=== PATIENT | male | born 2000 | race Caucasian/White ===

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

== ENCOUNTER → 2021-03-07 08:59 | Outpatient (BNVA) | payer OTHER, SELFPAY | PROVIDERS: PCP Family Medicine Adult Medicine; Visit Provider Specialist | DX: G40.309 Generalized idiopathic epilepsy and epileptic syndromes, not intractable, without status epilepticus (principal); F17.210 Nicotine dependence, cigarettes, uncomplicated | CPT/HCPCS: 99213; 99214 ==

== ENCOUNTER 2021-03-07 10:10 | Outpatient (CLI) | payer OTHER, SELFPAY ==
[2021-03-07 10:41] LABS: Basophils % 0.3 %; Eosinophils # 0.1 10^3/uL (0.0-0.8); Eosinophils % 1.9 %; Hematocrit 44.1 % (42.0-52.0); Hemoglobin 14.2 g/dL (11.7-16.6); Lymphocytes # 1.8 10^3/uL (1.5-6.5); Mean Corpuscular HGB Conc 32.2 g/dL (30.0-36.0); Mean Corpuscular Hemoglobin 30.2 pg (28.0-34.0); Mean Corpuscular Volume 93.8 fl (80-94); Mean Platelet Volume 9.9 fL (7.4-10.4); Monocytes # 0.9 10^3/uL (0.2-0.9); Monocytes % 13.9 %; Neutrophils # 3.59 10^3/uL (1.8-8.0); Neutrophils % 55.6 %; Nucleated Red Blood Cells % 0 %; Platelet Count 166 10^3/cmm (130-400); Red Cell Distribution Width 12.6 % (12.1-15.1); White Blood Count 6.5 10^3/uL (4.5-13.0)
[2021-03-07 11:06] LABS: Alanine Aminotransferase 29 U/L (0-41)
[2021-03-07 11:25] LABS: Valproic Acid Level 75.9 ug/mL (50-100)
[2021-03-11 14:49] LABS: Levetiracetam Keppra 7.9 mcg/mL
== END 2021-03-07 10:11 | disposition home or self-care (01) ==
LOC: LAB 10:21
PROVIDERS: PCP Family Medicine Adult Medicine; Visit Provider Specialist
DX: G40.309 Generalized idiopathic epilepsy and epileptic syndromes, not intractable, without status epilepticus (principal)
CPT/HCPCS: 36415; 80164; 80177; 84460; 85025

== ENCOUNTER 2021-03-25 21:25 | Emergency (ER) | payer OTHER, SELFPAY ==
[2021-03-25 21:28] VITALS: BMI 25.1
[2021-03-25 21:33] VITALS: BP 135/82; PULSE 68; PULSE 72; RESP 19; RESP 21; TEMP 36.4; O2SAT 96; O2SAT 97
--- NOTE | 2021-03-25 21:38 | ECG_ITS ---
[facility] Test Date: 2021-03-25 Pat Name: Jong Wright Department: Room: Gender: Male Embedder: : 2000 Requested By: Dk Valle Order Number: [id number] Reading MD: YANELIS PAYNE Measurements Intervals [place] Rate: 71 P: 62 HI: 151 QRS: 61 QRSD: 90 T: 55 QT: 335 QTc: 366 Interpretive Statements SINUS RHYTHM EARLY REPOLARIZATION [ST ELEVATION WITH NORMALLY INFLECTED T-WAVE] No previous ECG available for comparison Electronically Signed On 03-26-2021 15:03:53 CDT by YANELIS PAYNE [email or web address]
--- NOTE | 2021-03-25 21:39 | XRR_ITS ---
PROCEDURE INFORMATION: Exam: XR Left Shoulder Exam date and time: 03/25/2021 9:39 PM Age: 20 years old Clinical indication: Injury or trauma; Fall; Blunt trauma (contusions or hematomas); Shoulder; Left; Additional info: Rule out dislocation TECHNIQUE: Imaging protocol: XR Left shoulder. Views: 2 or more views. Total images: 3 COMPARISON: CR XR shoulder LT min 2V* [id number] 06/07/2020 7:12 PM FINDINGS: Bones/joints: Normal. Soft tissues: Normal. XR/XR shoulder LT min 2V* [id number] IMPRESSION: No acute findings.
--- NOTE | 2021-03-25 21:55 | W.ED.GENADLT ---
Documented by User: Dk Valle MD 03/26/21 19:05 HPI - General Adult General: Chief complaint: Seizure Stated complaint: SEIZURE/ POSSIBLE DISLOCATED SHOULDER Time Seen by Provider: 03/25/21 21:36 History of Present Illness: HPI narrative: HPI: [20]yo patient w/ hx of epilespy on depakote, and keppra BIBA to the ED with breakthrough episode of the seizure with unknown duration which occurred 30 minutes ago. The incident was witnessed entirely by family members, while the patient was sitting down in a chair, and the family denied LOC per EMS. En route, the patient had a fingerstick glucose wnl and was back to baseline. HDS without any signs of focal neurological deficits. On arrival, the patient is AAOx3, GCS of 15 and answering all questions. The patient denies any associated chest pain, shortness of breath, palpitations, or any focal pain in the arms and legs. Patient thinks the current episode is due to medication adjustment/compliance issues. Patient is followed by Dr. Bullock from Neurology. Patient has had left shoulder pain. He is unable to range the left shoulder due to pain. Onset: 30 minutes ago Duration: x1 episode Location: home Severity: moderate Review of Systems Narrative: Constitutional: No fever, no chills. HEENT: No vision changes CV: No chest pain, no palpitations PULM: No productive cough, no dyspnea. GI: No abdominal pain, no N/V/D. : No Dysuria MSKEL: No muscle pain SKIN: No new rashes, no lesions. NEURO: No headache, no focal weakness. + 1 episode of seizure HEME: No visible bruises PSYCH: Normal mood [facility] ED PFSH: Medical History Asthma Plantar wart of left foot Family History Other Cancer Diabetes Hypertension Stroke Social History Smoking and tobacco status: current every day smoker cigarettes and smokeless tobacco Smokeless tobacco details: marijuana Alcohol intake: current Alcohol intake frequency: holidays/special occasions only History of recent travel: Yes Details: [place] Out of state: Yes Physical Exam Narrative: EXAM NARRATIVE: Head: Atraumatic Eyes: PERRL, conjunctiva without injection, eyes tracking ENT: Mucous membrane moist NECK: Supple without lymphadenopathy LUNGS: LCTAB CV: RRR ABDOMEN: Soft, nontender in all quadrants, no guarding or rebound tenderness, no CVA or flank tenderness bilaterally EXTREMITY: Normal range of motion the right shoulder, limited range of motion of the left shoulder due to pain, no gross dislocation visible on the left side, 2+ radial pulses, neurovascular exam of over the left arm intact. SKIN: No rash or erythema NEURO: CN II-XII tested and intact. Sensation intact to sharp/dull differentiation in all extremities. Motor: Normal tone and bulk. No abnormal movements appreciated. No pronator drift. Strength tested and 5/5 in bilateral wrist flexion/extension, elbow flexion/extension, shoulder abduction, straight leg raise, knee flexion/extension, ankle dorsiflexion/plantarflexion. Patient ambulates with a steady gait. Coordination: Finger to nose and heel to romero testing intact bilaterally. Reflexes intact in the ankles, knees, and elbows bilaterally PSYCH: Cooperative mood and affect Course Vital Signs: Vital signs: Vital Signs Temperature 97.6 F 03/25/21 21:33 Pulse Rate 80 03/26/21 00:11 Respiratory Rate 16 03/26/21 00:11 Blood Pressure 116/75 03/26/21 00:11 Pulse Oximetry 96 03/26/21 00:11 MDM - General Adult MDM Narrative: Medical decision making narrative: [20]yo patient w/ known hx of seizure on keppra and valproic acidmedications BIBA after an episode of seizure with unknown duration which occurred [] minutes ago. Back to baseline on arrival, AAOX3 with non-focal neuro exam. HDS. Exam revealed no focal trauma/deformity/bruises.The episode of seizure was witnessed and without any trauma/injury to the head. No immunosuppression hx and without preceding fever. No history of alcohol abuse or suspicion for toxin ingestion. Hx of prior seizure likely breakthrough seizure in the setting of medication change/non-compliance. H No lips/tongue lacerations. No visible bowel/bladder incontinence Airway protected. No drooling. Sats > 95%. Unlikely to be stroke, neurogenic syncope, acute delirium, intracranial tumor/mass, intracranial bleed, SAH/subdural hematoma/epidural hematoma, meningitis, or intracranial abscess, or from alcohol withdrawal. EMS Interventions: None POC glucose: wnl Workup: CBC, BMP, Magnesium, EKG, XR L shoulder, ED Interventions: 1.5g of keppra, PO challenge, serial reassessment EKG showing regular sinus rhythm at HT of [69]. Normal axis. No ST elevations/depressions to suggest coronary occlusion. Normal MS, QRS, QT intervals. Lab findings: Electrolytes including K and Mg wnl. Did not show any signs of focal findings. He is able to range at after observation. Case was discussed with grandma who tells me that patient has had when he had a seizure. Case signed out to Dr. Augustine at 11pm pending CT brain and valproic acid level. Lab Data: Labs: Lab Results 03/25/21 03/25/21 Range/Units 22:00 22:17 WBC 10.4 (4.5-13.0) 10^3/ uL RBC 4.91 (4.1-5.3) 10^6/u L Hgb 14.9 (11.7-16.6) g/dL Hct 47.2 (42.0-52.0) % MCV 96.1 H (80-94) fl MCH 30.3 (28.0-34.0) pg MCHC 31.6 (30.0-36.0) g/dL RDW 12.5 (12.1-15.1) % Plt Count 167 (130-400) 10^3/c mm MPV 10.3 (7.4-10.4) fL Neut % (Auto) 74.2 % Lymph % (Auto) 15.9 % Blanco % (Auto) 8.3 % Eos % (Auto) 0.9 % Baso % (Auto) 0.4 % Neut # (Auto) 7.72 (1.8-8.0) 10^3/u L Lymph # (Auto) 1.7 (1.5-6.5) 10^3/u L Blanco # (Auto) 0.9 (0.2-0.9) 10^3/u L Eos # (Auto) 0.1 (0.0-0.8) 10^3/u L Baso # (Auto) 0.0 (0.0-0.1) 10^3/u L Nucleated RBC % (a uto) 0 % Nucleated RBCs # 0.0 /100WBC Sodium 140 (136-145) mmol/L Potassium 4.5 (3.5-5.1) mmol/L Chloride 105 (98-107) mmol/L Carbon Dioxide 22 (22-29) mmol/L Anion Gap 17.5 (5-19) BUN 18 (6-20) mg/dL Creatinine 0.8 (0.7-1.2) mg/dL GFR Calculation 124.5 (90-130) mL/min Glucose 99 (65-115) mg/dL Calculated Osmolal ity 292 (285-295) mOsm/k g Calcium 9.5 (8.5-10.5) mg/dL Magnesium 2.2 (1.7-2.2) mg/dL Total Bilirubin 0.2 (0.15-1.2) mg/dL AST 23 (0-40) U/L ALT 14 (0-41) U/L Alkaline Phosphata se 36 L (40-130) IU/L Total Protein 7.1 (6.6-8.7) g/dL Albumin 4.4 (3.5-5.2) g/dL Globulin 2.7 (1.3-4.6) g/dL Lipase 38 (13-60) U/L Valproic Acid 4.4 L (50-100) ug/mL Imaging Data^: Other Imaging: Radiologist's impression: [address] [id number] ReportSigned Patient: Jong WrightinUnit #: [id number]: 2001Acct#:[id number]/Sex: 20 / MADM Date: 03/25/21Loc: ERRoom/Bed:Attending Dr: Ordering Provider/Ordering MD: Dk Valle MD Date of Service: 03/25/21 Procedure(s): XR shoulder LT min 2V* [id number] Accession Number(s): [id number] Report Number: [id number] PROCEDURE INFORMATION: Exam: XR Left Shoulder Exam date and time: 03/25/2021 9:39 PM Age: 20 years old Clinical indication: Injury or trauma; Fall; Blunt trauma (contusions or hematomas); Shoulder; Left; Additional info: Rule out dislocation TECHNIQUE: Imaging protocol: XR Left shoulder. Views: 2 or more views. Total images: 3 COMPARISON: CR XR shoulder LT min 2V* [id number] 06/07/2020 7:12 PM FINDINGS: Bones/joints: Normal. Soft tissues: Normal. XR/XR shoulder LT min 2V* [id number] IMPRESSION: No acute findings. Dictated By:Rhonda Shoemaker By:Rhonda Shoemaker Date/Time:03/25/212234DD/ 32 Discharge Plan Discharge Patient Disposition: Home Clinical Impression: Acute shoulder pain, Seizure Condition: Stable Prescriptions: No Action lorazepam [Lorazepam Intensol] 2 mg/mL concentrate 1 mg sublingual DAILY PRN (Reason: seizures) Qty: 30 RF: 2 albuterol sulfate 0.63 mg/3 mL solution for nebulization 0.63 mg INHALATION QID PRNRF: 0 divalproex 500 mg tablet,delayed release (DR/EC) 500 mg PO BID Qty: 180 RF: 3 levetiracetam 750 mg tablet 750 mg PO BID Qty: 180 RF: 3 albuterol sulfate [ProAir HFA] 90 mcg/actuation HFA aerosol inhaler 2 puff INHALATION Q6H PRN (Reason: shortness of breath or wheezing) Qty: 18 RF: 4 Discharge Orders: Discharge ED (Routine); Ordered 03/26/21 Ordered By: Akbar Augustine Referrals: Reuben Juárez MD [Primary Care Provider] - Discharge Diet: Advance as tolerated Discharge Activity: Resume usual activity Patient Instructions: Epilepsy (ED) Activity Restrictions/Additional Instructions: Please take your medicine as instructed. Please not skip any more dose. Please do not swim, bathe, drive, or to any activities that are dangerous because of your seizure. Come back to the emergency room should you have any other issues. Please follow-up with Dr. Bullock. Coding Level of Care Code ED Truck Chauffeur for Chg Fwd Documented by User: Akbar Augustine DO 03/26/21 00:09 HPI - General Adult General: Chief complaint: Seizure Stated complaint: SEIZURE/ POSSIBLE DISLOCATED SHOULDER Time Seen by Provider: 03/25/21 21:36 PFSH ED PFSH: Medical History Asthma Plantar wart of left foot Family History Other Cancer Diabetes Hypertension Stroke Social History Smoking and tobacco status: current every day smoker cigarettes and smokeless tobacco Smokeless tobacco details: marijuana Alcohol intake: current Alcohol intake frequency: holidays/special occasions only History of recent travel: Yes Details: [place] Out of state: Yes Course Vital Signs: Vital signs: Vital Signs Temperature 97.6 F 03/25/21 21:33 Pulse Rate 80 03/26/21 00:11 Respiratory Rate 16 03/26/21 00:11 Blood Pressure 116/75 03/26/21 00:11 Pulse Oximetry 96 03/26/21 00:11 MDM - General Adult MDM Narrative: Medical decision making narrative: 20-year-old male with a history of seizure disorder checked out to me by Dr. Valle at shift change. I followed up on his valproic acid level as well as his CT scan. CT scan is negative. His valproic acid level is quite low as suspected. The patient was encouraged to take his medication as directed. Other laboratory is benign. He will be discharged. Lab Data: Labs: Lab Results 03/25/21 03/25/21 Range/Units 22:00 22:17 WBC 10.4 (4.5-13.0) 10^3/ uL RBC 4.91 (4.1-5.3) 10^6/u L Hgb 14.9 (11.7-16.6) g/dL Hct 47.2 (42.0-52.0) % MCV 96.1 H (80-94) fl MCH 30.3 (28.0-34.0) pg MCHC 31.6 (30.0-36.0) g/dL RDW 12.5 (12.1-15.1) % Plt Count 167 (130-400) 10^3/c mm MPV 10.3 (7.4-10.4) fL Neut % (Auto) 74.2 % Lymph % (Auto) 15.9 % Blanco % (Auto) 8.3 % Eos % (Auto) 0.9 % Baso % (Auto) 0.4 % Neut # (Auto) 7.72 (1.8-8.0) 10^3/u L Lymph # (Auto) 1.7 (1.5-6.5) 10^3/u L Blanco # (Auto) 0.9 (0.2-0.9) 10^3/u L Eos # (Auto) 0.1 (0.0-0.8) 10^3/u L Baso # (Auto) 0.0 (0.0-0.1) 10^3/u L Nucleated RBC % (a uto) 0 % Nucleated RBCs # 0.0 /100WBC Sodium 140 (136-145) mmol/L Potassium 4.5 (3.5-5.1) mmol/L Chloride 105 (98-107) mmol/L Carbon Dioxide 22 (22-29) mmol/L Anion Gap 17.5 (5-19) BUN 18 (6-20) mg/dL Creatinine 0.8 (0.7-1.2) mg/dL GFR Calculation 124.5 (90-130) mL/min Glucose 99 (65-115) mg/dL Calculated Osmolal ity 292 (285-295) mOsm/k g Calcium 9.5 (8.5-10.5) mg/dL Magnesium 2.2 (1.7-2.2) mg/dL Total Bilirubin 0.2 (0.15-1.2) mg/dL AST 23 (0-40) U/L ALT 14 (0-41) U/L Alkaline Phosphata se 36 L (40-130) IU/L Total Protein 7.1 (6.6-8.7) g/dL Albumin 4.4 (3.5-5.2) g/dL Globulin 2.7 (1.3-4.6) g/dL Lipase 38 (13-60) U/L Valproic Acid 4.4 L (50-100) ug/mL Discharge Plan Discharge Patient Disposition: Home Clinical Impression: Acute shoulder pain, Seizure Condition: Stable Prescriptions: No Action lorazepam [Lorazepam Intensol] 2 mg/mL concentrate 1 mg sublingual DAILY PRN (Reason: seizures) Qty: 30 RF: 2 albuterol sulfate 0.63 mg/3 mL solution for nebulization 0.63 mg INHALATION QID PRNRF: 0 divalproex 500 mg tablet,delayed release (DR/EC) 500 mg PO BID Qty: 180 RF: 3 levetiracetam 750 mg tablet 750 mg PO BID Qty: 180 RF: 3 albuterol sulfate [ProAir HFA] 90 mcg/actuation HFA aerosol inhaler 2 puff INHALATION Q6H PRN (Reason: shortness of breath or wheezing) Qty: 18 RF: 4 Discharge Orders: Discharge ED (Routine); Ordered 03/26/21 Ordered By: Akbar Augustine Referrals: Reuben Juárez MD [Primary Care Provider] - Discharge Diet: Advance as tolerated Discharge Activity: Resume usual activity Patient Instructions: Epilepsy (ED) Activity Restrictions/Additional Instructions: Please take your medicine as instructed. Please not skip any more dose. Please do not swim, bathe, drive, or to any activities that are dangerous because of your seizure. Come back to the emergency room should you have any other issues. Please follow-up with Dr. Bullock. Coding Level of Care Code ED Truck Chauffeur for Radha Urbina
[2021-03-25] MEDS: levETIRAcetam 500 mg Tablet PO (22:05)
[2021-03-25] MEDS: levETIRAcetam 500 mg Tablet 1000 MG PO (22:05)
[2021-03-25] MEDS: sodium chloride 0.9% 1,000 ML 999 ML IV (22:06)
[2021-03-25] MEDS: acetaminophen 500 mg Tablet 1000 MG PO (22:06)
[2021-03-25 22:21] LABS: Basophils % 0.4 %; Eosinophils # 0.1 10^3/uL (0.0-0.8); Eosinophils % 0.9 %; Hematocrit 47.2 % (42.0-52.0); Hemoglobin 14.9 g/dL (11.7-16.6); Lymphocytes # 1.7 10^3/uL (1.5-6.5); Lymphocytes % 15.9 %; Mean Corpuscular HGB Conc 31.6 g/dL (30.0-36.0); Mean Corpuscular Hemoglobin 30.3 pg (28.0-34.0); Mean Corpuscular Volume 96.1 fl (80-94); Mean Platelet Volume 10.3 fL (7.4-10.4); Monocytes # 0.9 10^3/uL (0.2-0.9); Monocytes % 8.3 %; Neutrophils # 7.72 10^3/uL (1.8-8.0); Neutrophils % 74.2 %; Nucleated Red Blood Cells % 0 %; Platelet Count 167 10^3/cmm (130-400); Red Blood Count 4.91 10^6/uL (4.1-5.3); Red Cell Distribution Width 12.5 % (12.1-15.1); White Blood Count 10.4 10^3/uL (4.5-13.0)
[2021-03-25] MEDS: aspirin 325 mg Tablet PO (22:21)
[2021-03-25 22:22] LABS: Albumin Level 4.4 g/dL (3.5-5.2); Blood Urea Nitrogen 18 mg/dL (6-20); Calcium 9.5 mg/dL (8.5-10.5); Carbon Dioxide 22 mmol/L (22-29); Globulin 2.7 g/dL (1.3-4.6); Glomerular Filtration Rate 124.5 mL/min (90-130); Glucose 99 mg/dL (65-115); Lipase 38 U/L (13-60); Magnesium 2.2 mg/dL (1.7-2.2); Total Bilirubin 0.2 mg/dL (0.15-1.2); Total Protein 7.1 g/dL (6.6-8.7)
[2021-03-25 22:39] LABS: Alanine Aminotransferase 14 U/L (0-41); Anion Gap 17.5 (5-19); Aspartate Amino Transferase 23 U/L (0-40); Chloride 105 mmol/L (98-107); Osmolality Calculated 292 mOsm/kg (285-295); Potassium 4.5 mmol/L (3.5-5.1); Sodium 140 mmol/L (136-145)
--- NOTE | 2021-03-25 22:54 | CTR_ITS ---
PROCEDURE INFORMATION: Exam: CT Head Without Contrast Exam date and time: 03/25/2021 10:54 PM Age: 20 years old Clinical indication: Condition or disease; Convulsions or seizures; Epilepsy; Severity not specified; Unspecified; Patient HX: Single seizure witnessed by family HX of sz; Additional info: Fall TECHNIQUE: Imaging protocol: Computed tomography of the head without contrast. Total images: 212 Radiation optimization: All CT scans at this facility use at least one of these dose optimization techniques: automated exposure control; mA and/or kV adjustment per patient size (includes targeted exams where dose is matched to clinical indication); or iterative reconstruction. COMPARISON: CT head wo con* [id number] 06/07/2020 7:01 PM RADIATION DOSE METRICS: Total DLP (mGy-cm): 879.95 FINDINGS: Brain: No evidence of active or acute intracranial pathologic process, hemorrhage, or trauma. No visible evidence of diffuse cerebral edema or generalized demyelination. No mass effect. No midline shift. Cerebral ventricles: No ventriculomegaly. Paranasal sinuses: Visualized sinuses are unremarkable. No fluid levels. Mastoid air cells: Visualized mastoid air cells are well aerated. Bones/joints: Unremarkable. No acute fracture. Soft tissues: Unremarkable. CT/CT head wo con* [id number] IMPRESSION: No evidence of active or acute intracranial pathologic process, hemorrhage, or trauma. Radiation Dose CTDIVOL = (mGy): DLP = 879.95 (mGy-cm)
[2021-03-25 22:57] VITALS: BP 120/81; PULSE 87; RESP 24; O2SAT 97
[2021-03-25 23:00] VITALS: BP 127/74; PULSE 74; RESP 23; O2SAT 96
[2021-03-25 23:19] LABS: Valproic Acid Level 4.4 ug/mL (50-100)
[2021-03-25 23:39] LABS: Alkaline Phosphatase 36 IU/L (40-130)
[2021-03-26 00:11] VITALS: BP 116/75; PULSE 80; RESP 16; O2SAT 96
--- NOTE | 2021-03-29 10:13 | DCPLANNER ---
Addendum entered by Michelle Jang 03/31/21 08:04: area development manager was notified by the neurology clinic, that per Dr. Bullock that since patient is an established patient that she wants to keep patients follow up appointment that he already has scheduled. Clinic attempted to call patient but was unable to speak with patient at the time, a message was left for patient concerning the follow up appointment. Original Note: area development manager had message to schedule a follow up appointment for patient with Dr. Bullock. area development manager emailed patients information to the neurology clinic. Patients information will be printed and reviewed. Clinic will call patient with appointment information.
== END 2021-03-26 00:15 | disposition home or self-care (01) ==
PROVIDERS: Emergency Medicine; Emergency Provider Emergency Medicine; PCP Family Medicine Adult Medicine
DX: R56.9 Unspecified convulsions (principal); M25.512 Pain in left shoulder; F17.210 Nicotine dependence, cigarettes, uncomplicated
CPT/HCPCS: 70450; 73030; 80053; 80164; 83690; 83735; 85025; 93005; 96360; 99284; J7030

== ENCOUNTER → 2021-11-23 09:12 | Outpatient (BNVA) | payer OTHER, SELFPAY | PROVIDERS: PCP Family Medicine Adult Medicine; Referring Provider Family Medicine Adult Medicine; Visit Provider Nurse Practitioner Family | DX: S46.912A Strain of unspecified muscle, fascia and tendon at shoulder and upper arm level, left arm, initial encounter (principal); X58.XXXA Exposure to other specified factors, initial encounter | CPT/HCPCS: 73030 ==

== ENCOUNTER 2021-11-29 06:00 | Outpatient (RCR) | payer OTHER, SELFPAY | END 2021-12-19 23:59 | disposition home or self-care (01) | LOC: SPT 06:00 | PROVIDERS: PCP Family Medicine Adult Medicine; Referring Provider Nurse Practitioner Family; Visit Provider Nurse Practitioner Family | DX: M25.312 Other instability, left shoulder (principal) | CPT/HCPCS: 97110; 97161 ==

== ENCOUNTER 2022-01-13 14:07 | Emergency (ER) | payer OTHER, SELFPAY ==
[2022-01-13 15:03] VITALS: BP 122/84; PULSE 86; RESP 14; TEMP 36.8; O2SAT 95; BMI 27.3
--- NOTE | 2022-01-13 15:30 | ED_ITS ---
HPI - General Adult General: Chief complaint: General Medical Stated complaint: trouble swollowing, pain Time Seen by Provider: 01/13/22 15:11 History of Present Illness: Patient is a 21-year-old male comes to the ED with sore throat. Patient says he tested positive for COVID-19 yesterday. He has been having a fever and sore throat. Has sore throat feels worse today and its mainly on his right side. Denies any cough, nausea/vomiting, abdominal pain, bladder or bowel symptoms. Associated symptoms: Deny chest pain, dyspnea, headache(s), nausea, rash, palpitations or vomiting Review of Systems Const: Reports: fever(s); Denies: chills or fatigue Eyes: Denies: change in vision or eye discomfort ENMT: Reports: throat pain and odynophagia; Denies: nasal discharge or nasal congestion Card: Denies: chest pain, palpitations, edema, swelling of feet/ankles, dyspnea on exertion or orthopnea Resp: Denies: dyspnea, productive cough or non-productive cough GI: Denies: abdominal pain, nausea, vomiting, diarrhea, constipation or hematochezia : Denies: flank pain, difficulty urinating, dysuria or hematuria Musc: Denies: neck pain, back pain or extremity swelling Skin/Breast: Denies: rash or new lesions Neuro: Denies: headache(s), numbness in extremities or weakness in extremities PFS ED PFSH: Medical History Asthma Plantar wart of left foot Recurrent dislocation, left shoulder Family History Other Cancer Diabetes Hypertension Stroke Social History Smoking and tobacco status: current every day smoker cigarettes and smokeless tobacco Smokeless tobacco details: marijuana Alcohol intake: current Alcohol intake frequency: holidays/special occasions only History of recent travel: Yes Details: [place] Out of state: Yes Physical Exam Const: COMMON NORMALS: no acute distress, patient oriented x3 and alert GENERAL APPEARANCE: cooperative and comfortable HENMT: COMMON NORMALS: normocephalic HEAD & SCALP: normocephalic MOUTH: Normal oral and palatal mucosa present THROAT: uvula midline and posterior oropharynx abnormal erythema and other (Small superficial ulceration seen on right side.) Neck/C-Spine: COMMON NORMALS: supple GENERAL: Yes normal visual inspection Resp: COMMON NORMALS: normal respiratory effort, No retractions, No use of accessory muscles and clear to auscultation bilaterally AUSCULTATION: clear to auscultation bilaterally Cardio: COMMON NORMALS: regular rate, regular rhythm, S1 normal heart sound present, S2 normal heart sound present, No gallops present (Cardio), No clicks present (Cardio), No murmurs present (Cardio) and Peripheral pulses 2+ throughout RATE: regular rate RHYTHM: regular rhythm HEART SOUNDS: S1 normal heart sound present and S2 normal heart sound present PERIPHERAL PULSES: Peripheral pulses 2+ throughout GI: COMMON NORMALS: Normal to inspection, nondistended, normoactive bowel sounds present, Soft to palpation, non-tender and no masses PALPATION: Yes Soft to palpation : COMMON NORMALS: Yes no CVA tenderness BLADDER/KIDNEY EXAM: Yes no CVA tenderness Back/Pelvis: COMMON NORMALS: no CVA tenderness Extremity: COMMON NORMALS: normal to inspection Neuro: COMMON NORMALS: patient oriented x3 and moves all extremities SENSORIUM/ORIENTATION: Yes alert Skin: GENERAL SKIN EXAM: dry skin Course Vital Signs: Vital signs: Vital Signs Temperature 98.3 F 01/13/22 15:03 Pulse Rate 84 01/13/22 16:02 Respiratory Rate 14 01/13/22 16:02 Blood Pressure 122/84 01/13/22 15:03 Pulse Oximetry 96 01/13/22 16:02 [facility] - General Adult Medical Decision Making Patient is a 21-year-old male comes to the ED with sore throat and fever. Patient was seen at [facility] yesterday and tested positive for COVID-19. Today his sore throat is worse than yesterday. Vitals are stable and patient is afebrile here in the ED. Exam of patient shows some posterior oropharynx erythema with a small ulceration noted on the right side. Rest of exam is benign and patient appears nontoxic in no acute distress. Strep test was negative. Patient was stable for discharge home and diagnosed with COVID-19 with acute viral pharyngitis. He was told to follow-up with his PCP in the next week for reevaluation. He is instructed on symptomatic treatment. Return to ED precautions given. Patient understood and agreed with plan. Lab Data Laboratory Results Group A Strep Rapid Negative (Negative) 01/13/22 15:25 Discharge Plan Discharge Patient Disposition: Home Clinical Impression: COVID-19, Acute viral pharyngitis Condition: Stable Prescriptions: No Action lorazepam [Lorazepam Intensol] 2 mg/mL concentrate 1 mg sublingual DAILY PRN (Reason: seizures) Qty: 30 2RF Rx Instructions: For seizure lasting longer than 5 minutes albuterol sulfate 0.63 mg/3 mL solution for nebulization 0.63 mg INHALATION QID PRN0RF albuterol sulfate [ProAir HFA] 90 mcg/actuation HFA aerosol inhaler 2 puff INHALATION Q6H PRN (Reason: shortness of breath or wheezing) Qty: 18 4RF levetiracetam 750 mg tablet extended release 24 hr 1,500 mg PO DAILY Qty: 180 0RF divalproex 500 mg tablet,delayed release (DR/EC) 500 mg PO BID Qty: 180 0RF Discharge Orders: Discharge ED (Routine); Ordered 01/13/22 Ordered By: Bartolo Woodward Referrals: Reuben Juárez MD [Primary Care Provider] - Discharge Diet: Regular Discharge Activity: Increase activity as tolerated Patient Instructions: Pharyngitis (ED), COVID-19 (Coronavirus Disease 2019) (ED) Activity Restrictions/Additional Instructions: Follow-up with medical provider as directed in the next 5 to 7 days for reeva luation. Take [id number] ibuprofen or Tylenol for fever or pain. Make sure you drink plenty fluids and stay hydrated. Return to the ER or your medical provider if condition worsens. Please read and understand discharge instructions. Thank you for choosing [facility] for your healthcare needs today. Please realize this is an emergency room and that we are providing you with a medical screening exam and this may not be complete and all inclusive of all the testing and or work up that you may need to determine your ailment or severity of your illness. It is very important that you follow up as instructed or that you return to the Emergency Department should you have concerns or if your condition changes or worsens in any way. Coding Level of Care Code ED Second Time Worker for Radha Fwosiris Exam Comprehensive
[2022-01-13 15:44] LABS: Rapid Strep A Test Negative (Negative)
[2022-01-13 16:02] VITALS: PULSE 84; RESP 14; O2SAT 96
== END 2022-01-13 16:02 | disposition home or self-care (01) ==
PROVIDERS: Emergency Provider Physician Assistant; PCP Family Medicine Adult Medicine
DX: U07.1 COVID-19 (principal); J02.8 Acute pharyngitis due to other specified organisms; F17.210 Nicotine dependence, cigarettes, uncomplicated
CPT/HCPCS: 87081; 87880; 99282